=== PATIENT | male | born 1965 | race Caucasian/White ===

== ENCOUNTER 2019-08-30 05:34 | Outpatient (RCR) | payer BC ==
[~2019-08-30] VITALS: Ht 172.7 cm; Wt 84.1 kg
[2019-08-30] MEDS ORDERED: PARO25TA2 PO (10:17)
== END 2019-08-30 10:20 | disposition home or self-care (01) ==
LOC: PREOP 05:34
PROVIDERS: ATTEND Internal Medicine
DX: Z01.812 Encounter for preprocedural laboratory examination (principal); Z20.828 Contact with and (suspected) exposure to other viral communicable diseases
CPT/HCPCS: 87635

== ENCOUNTER 2019-09-02 08:27 | Day surgery (SDC) | payer BC ==
--- NOTE | 2019-08-24 17:09 | HISTORY AND PHYSICAL ---
DATE OF SERVICE: COLONOSCOPY HISTORY AND PHYSICAL HISTORY OF PRESENT ILLNESS: The patient is a 53-year-old white male referred by Dr. Calhoun for screening colonoscopy. He is deemed to be at average risk. He is not aware of any family history for colon cancer or colon polyps. He denies bowel habit change, diarrhea, constipation, history of irritable bowel syndrome, bright red blood per rectum, melena or abdominal pain. He has no past history of cardiovascular or pulmonary disease. PAST MEDICAL HISTORY: Significant for anxiety for which he takes paroxetine 25 mg daily. He is on no other prescription medication. SOCIAL HISTORY: He works at a local [employer] in [employer] and [employer]. He has no past tobacco history and rare alcohol use history. FAMILY HISTORY: Father is living at age of 87, has diet controlled type 2 diabetes mellitus. Mother at age 75 secondary to pancreatic cancer. Has one living sister 59 with no health problems that he is aware of. PAST SURGICAL HISTORY: Significant for vasectomy in the past, not aware of any other surgery. REVIEW OF SYSTEMS: CONSTITUTIONAL: The patient denies change in weight, night sweats, chills, fever. CARDIOVASCULAR: The patient denies dyspnea on exertion, chest discomfort, orthopnea, PND or pedal edema. PULMONARY: The patient denies cough, shortness of breath or wheezing. GASTROINTESTINAL: As noted in the HPI. PHYSICAL EXAMINATION: GENERAL: Reveals a well-appearing white male in no acute distress. HEENT: Unremarkable. Mallampati 2 oropharyngeal configuration. Sclerae nonicteric. CHEST: Clear to auscultation. CARDIOVASCULAR: Revealed a regular rate and rhythm without murmur, S3 or S4. ABDOMEN: Soft, supple without mass, organomegaly or tenderness. Mild diastasis recti is noted involving the upper abdomen. There is a very small reducible periumbilical hernia noted. No mass, organomegaly or evidence for abdominal aortic aneurysm was noted to palpation. No bruits are appreciated. EXTREMITIES: Reveal no cyanosis, clubbing or edema. ASSESSMENT AND PLAN: The patient was set up for his first screening colonoscopy on 09/02/2019. Prep instructions and Suprep kit were given and questions were answered. He is reassured about a small diastasis recti and also has a very small periumbilical hernia, asymptomatic low risk for future complication. I thank you for the referral of this pleasant gentleman. Job ID: [id number] DocumentID: [id number] Dictated Date: 08/04/2019 17:54:30 Sieve Grader Tender Date: 08/04/2019 18:11:35 Dictated By: SOWMYA SANDOVAL MD
[~2019-09-02] VITALS: Ht 172.1 cm; Wt 84.1 kg
[2019-09-02] VITALS (13 sets, daily range): BP systolic 113–131; BP diastolic 74–86
[~2019-09-02 08:27] MED LIST: PARO25TA2 PO
[2019-09-02] MEDS ORDERED: D5 LR IV SOLUTION 1,000 ML IV STA (08:38)
[2019-09-02] MEDS ORDERED: fentaNYL INJECTION 100 MCG/2 ML AMP IVP ONE (08:45)
[2019-09-02] MEDS ORDERED: MIDAZOLAM 5 MG/5 ML (VERSED) VIAL IV PRN (08:45)
[2019-09-02] MEDS ORDERED: LIDOCAINE JELLY 2% 6 ML SYRINGE MM PRN (08:45)
[2019-09-02] MEDS ORDERED: D5 LR IV SOLUTION 1,000 ML IV ONE (08:52)
[2019-09-02] MEDS ORDERED: LIDOCAINE JELLY 2% 6 ML SYRINGE ONE (09:17)
[2019-09-02] MEDS ORDERED: fentaNYL INJECTION 100 MCG/2 ML AMP ONE (09:18)
[2019-09-02] MEDS ORDERED: MIDAZOLAM 5 MG/5 ML (VERSED) VIAL ONE (09:18)
--- OUTSIDE RECORDS SUMMARY | 2019-09-02 10:28 | XMS REPORT | Continuity of Care Document ---
Author Organization Unknown Address Unknown Phone Unavailable Allergies Active Description Code Type Severity Reaction Onset Reported/Identified Relationship to Patient Clinical Status Yes NKANo Known Allergies NKA Miscellaneous Allergy Unknown N/A 11/28/2005 Yes erythromycin base [id number] Drug Allergy Unknown N/A 08/30/2019 Medications There is no data. Problems There is no data. Procedures There is no data. Results There is no data. Encounters ACCT No. Visit Date/Time Discharge Status Pt. Type Provider Facility Loc./Unit Complaint [id number] 08/30/2019 05:34:00 020 10:20:00 DIS Outpatient SOWMYA SANDOVAL MD [facility] PREOP SCREENING [id number] 09/02/2019 09:30:00 P EN Preadmit SOWMYA SANDOVAL MD [facility] ENDO SCREENING
--- NOTE | 2019-09-02 10:43 | Pre-Op Note & Conscious Sedat ---
Pre-Operative Progress Note H&P Reviewed The H&P was reviewed, patient examined and no changes noted. Date H&P Reviewed: Sep 02, 2019 Time H&P Reviewed: 09:15 Conscious Sedation Pre-Proced ASA Score 2 For ASA 3 and 4: Consider anesthesia and medical clearance. Also, for patients with a history of failed moderate sedation consider anesthesia. Airway Lungs Heart ASA score ASA 1: a normal healthy patient ASA 2: a patient with a mild systemic disease (mid diabetes, controlled hypertension, obesity ASA 3: a patient with a severe systemic disease that limits activity (angina, COPD, prior Myocardial infarction) ASA 4: a patient with an incapacitating disease that is a constant threat to life (CHF, renal failure) ASA 5: a moribund patient not expected to survive 24 hrs. (ruptured aneurysm) ASA 6: a declared brain- patient whose organs are being harvested. For emergent operations, add the letter E after the classification Mallampati Classification Grade 2 Sedation Plan Analgesia, Amnesia, Plan communicated to team members, Discussed options with patient/fam, Discussed risks with patient/fam The patient is an appropriate candidate to undergo the planned procedure, sedation, and anesthesia. The patient immediately re-assessed prior to indication. SOWMYA SANDOVAL MD Sep 02, 2019 10:43
--- NOTE | 2019-09-02 16:44 | OPERATIVE REPORT ---
DATE OF SERVICE: COLONOSCOPY SUMMARY INDICATION FOR THE PROCEDURE: Screening colonoscopy. DESCRIPTION OF PROCEDURE: The patient was placed in the left lateral decubitus position. Prior to undergoing colonoscopy, a digital rectal evaluation was performed. The patient did have a subcentimeter growth at the 7 o'clock position compatible with a benign anal papilloma. There was no evidence for internal or external hemorrhoids. Prostate was normal in size, anodular and nontender to digital inspection. No abnormalities were noted on digital inspection of anal canal or distal rectal vault. The colonoscope was then inserted into the rectum and under direct visualization advanced to the cecum. The cecum was identified by identification of the ileocecal valve and cecal strap. Photographic documentation was obtained. Quality of prep was good. The patient tolerated the procedure well. FINDINGS: There was no evidence for internal or external hemorrhoids. The rectum was unremarkable. Present in the distal sigmoid colon was a diminutive 1 mm sessile hyperplastic-appearing polyp. It was photographed and biopsied and ablated with no subsequent blood loss. One or two small sigmoid diverticulum were present without evidence for diverticulitis. No other sigmoid colonic abnormalities were appreciated. The descending colon, splenic flexure, transverse colon, hepatic flexure, ascending colon and cecum were unremarkable. ASSESSMENT: 1. One diminutive hyperplastic appearing polyp was removed via hot forceps from the distal sigmoid colon. 2. The patient did have a perianal growth compatible with a small benign anal papilloma. It is not bothering the patient, so did not advise removal. The patient is not aware of any family history for colon cancer, so would recommend consideration for repeat screening colonoscopy in 10 years. I thank you for the referral of this pleasant gentleman. Job ID: [id number] DocumentID: [id number] Dictated Date: 09/02/2019 10:59:27 Rv Service Technician Date: 09/02/2019 16:44:12 Dictated By: SOWMYA SANDOVAL MD MTDD
== END 2019-09-02 10:45 | disposition home or self-care (01) ==
LOC: ENDO 08:27
PROVIDERS: ATTEND Internal Medicine
DX: Z12.11 Encounter for screening for malignant neoplasm of colon (principal); K63.5 Polyp of colon; F41.9 Anxiety disorder, unspecified; K42.9 Umbilical hernia without obstruction or gangrene; K57.30 Diverticulosis of large intestine without perforation or abscess without bleeding; K62.9 Disease of anus and rectum, unspecified; M62.08 Separation of muscle (nontraumatic), other site; Z79.899 Other long term (current) drug therapy; Z80.0 Family history of malignant neoplasm of digestive organs